=== PATIENT | female | born 1950 | race Caucasian/White ===

== ENCOUNTER 2019-08-18 12:51 | Emergency (ER) | payer OTHER ==
[~2019-08-18] VITALS: Ht 157.5 cm; Wt 100.0 kg
[2019-08-18 13:20] VITALS: BP 139/106
== END 2019-08-18 15:38 | disposition home or self-care (01) ==
LOC: ER 12:52
DX: S93.492A Sprain of other ligament of left ankle, initial encounter (principal); Z88.1 Allergy status to other antibiotic agents; W11.XXXA Fall on and from ladder, initial encounter; Y93.89 Activity, other specified; Y92.89 Other specified places as the place of occurrence of the external cause; Y99.8 Other external cause status
CPT/HCPCS: 73610; 99283